=== PATIENT | male | born 2005 | race Two or more races ===

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

== ENCOUNTER 2025-06-15 15:02 | Inpatient (IN) | payer MEDICAID ==
[~2025-06-15] VITALS: Ht 162.6 cm; Wt 59.0 kg
[2025-06-15] MEDS: IV NS 0.9% 1,000 ML BAG IV ONE (15:54)
[2025-06-15 15:55] LABS: PLATELET COUNT (AUTO) 351 K/uL (150-450); RED BLOOD CELL COUNT(AUTO) 3.43 MIL/uL (4.5-6.0); RED CELL DISTRIBUTION WIDTH 16.5 % (11.5-15.0); WHITE BLOOD COUNT (AUTO) 28.8 K/uL (4.3-11.0)
[2025-06-15 16:05] LABS: CALCIUM, SERUM 8.2 mg/dL (8.5-10.1); CREATININE 3.0 mg/dL (0.6-1.3); SERUM AMMONIA 28.0 umol/L (11-32); SODIUM SERUM 140.0 mmol/L (136-145); UREA NITROGEN, BLOOD 21.0 mg/dL (7-18)
[2025-06-15 16:07] LABS: INR 4.31 (0.91-1.10)
[2025-06-15 16:18] LABS: ASPARTATE AMINOTRANSFERASE 104.0 U/L (15-37); NT-PRO BNP 976.0 pg/mL (0-125); TOTAL PROTEIN, SERUM 7.1 g/dL (6.4-8.2)
[2025-06-15] MEDS ORDERED: PIPERACI/TAZO 3.375GM/D5W 50ML PB IV ONE (16:46)
[2025-06-15] MEDS: PIPERACILLIN /TAZOBACTAM 4.5 G in IV D5W 100 ML IV SCH (17:00)
[2025-06-15] MEDS ORDERED: PHYTONADIONE INJ 10 MG/1 ML AMPUL ONE (17:22)
[2025-06-15] MEDS ORDERED: MAGNESIUM HYDROXIDE 30 ML UDC PO PRN (17:30)
[2025-06-15] MEDS ORDERED: ONDANSETRON HCL/PF 4 MG/2 ML VIAL IVP PRN (17:30)
[2025-06-15] MEDS ORDERED: DOSING PER PHARMACY-ZOSYN IV 1 EA EA XX PRN (17:30)
[2025-06-15] MEDS: PANTOPRAZOLE 40 MG VIAL IV SCH (17:30)
[2025-06-15] MEDS ORDERED: Z GUARD REMEDY 4 OZ OINT TP PRN (17:30)
[2025-06-15] MEDS: PHYTONADIONE IV ONE (17:40)
[2025-06-15] MEDS: NS 0.9% IV ONE (17:40)
[2025-06-15] MEDS: PHYTONADIONE 10 MG in IV D5W 50 ML IV ONE (17:55)
[2025-06-15 18:20] LABS: APPEARANCE,URINE SLIGHTLY CLOUDY (CLEAR); BLOOD, URINE NEGATIVE Ery/uL (NEGATIVE); LEUKOCYTE ESTERASE ,URINE NEGATIVE (NEGATIVE); NITRITE, URINE NEGATIVE (NEGATIVE); UGLUCOSE NEGATIVE (NEGATIVE)
[2025-06-15 18:47] LABS: ADD URINE CULTURE NO
[2025-06-15] MEDS: Thiamine 100 MG in IV D5W 50 ML IV SCH (18:57)
[2025-06-15 20:00] VITALS: BP 94/63; TEMP 97.9; O2SAT 95
[2025-06-15] MEDS: IV D5/ 0.9% NACL 1,000 ML IV PRN (21:25)
[2025-06-15] MEDS: ZOSYN IVPB 2.25 G in IV D5W 50ml IV SCH (23:21)
[2025-06-16] VITALS: BP 110/71; TEMP 98.1; O2SAT 95
[2025-06-16] MEDS: LORAZEPAM INJ 2 MG/ML VIAL IV PRN (01:16)
[2025-06-16 04:00] VITALS: BP 95/63; TEMP 98; O2SAT 95
[2025-06-16 06:34] LABS: PLATELET COUNT (AUTO) 298 K/uL (150-450); RED BLOOD CELL COUNT(AUTO) 3.08 MIL/uL (4.5-6.0); RED CELL DISTRIBUTION WIDTH 15.8 % (11.5-15.0); WHITE BLOOD COUNT (AUTO) 26.7 K/uL (4.3-11.0)
[2025-06-16 07:06] LABS: ASPARTATE AMINOTRANSFERASE 87.0 U/L (15-37); CALCIUM, SERUM 7.7 mg/dL (8.5-10.1); CREATININE 2.4 mg/dL (0.6-1.3); PHOSPHORUS 3.4 mg/dL (2.5-4.9); SODIUM SERUM 139.0 mmol/L (136-145); TOTAL PROTEIN, SERUM 5.9 g/dL (6.4-8.2); UREA NITROGEN, BLOOD 20.0 mg/dL (7-18)
[2025-06-16 08:00] VITALS: BP 94/54; TEMP 98.6; O2SAT 96
[2025-06-16] MEDS: POTASSIUM CHLORIDE 20 MEQ TAB.PRT.SR PO ONE (10:04)
[2025-06-16 12:00] VITALS: BP 96/64; TEMP 98.8; O2SAT 96
[2025-06-16] MEDS: PIPERACILLIN /TAZOBACTAM 3.375 G in IV D5W 100 ML IV SCH (12:04)
[2025-06-16] MEDS: MORPHINE SULFATE INJ 2 MG/ML DISP.SYRIN IV PRN (12:07)
[2025-06-16 16:00] VITALS: BP 96/61; TEMP 98.5; O2SAT 96
[2025-06-16 20:00] VITALS: BP 97/72; TEMP 97.9; O2SAT 94
[2025-06-17] VITALS: BP 125/88; TEMP 97.9; O2SAT 94
[2025-06-17 03:13] LABS: HBSAG SCREEN Negative (Negative); HEPATITIS A AB, IgM Negative (Negative); HEPATITIS B CORE AB, IgM Negative (Negative)
[2025-06-17 04:00] VITALS: BP 107/85; TEMP 98.1; O2SAT 94
[2025-06-17 07:12] LABS: HEPATITIS A AB, IgM Negative (Negative); HEPATITIS A AB, TOTAL Positive (Negative); HEPATITIS B CORE AB, TOTAL Negative (Negative)
[2025-06-17 08:00] VITALS: BP 100/63; TEMP 98.2; O2SAT 94
[2025-06-17 08:04] LABS: CREATINE KINASE, TOTAL 23.0 U/L (39-308)
[2025-06-17 08:06] LABS: PLATELET COUNT (AUTO) 281 K/uL (150-450); RED BLOOD CELL COUNT(AUTO) 3.20 MIL/uL (4.5-6.0); RED CELL DISTRIBUTION WIDTH 16.0 % (11.5-15.0)
[2025-06-17 08:11] LABS: ASPARTATE AMINOTRANSFERASE 92.0 U/L (15-37); CALCIUM, SERUM 7.9 mg/dL (8.5-10.1); CREATININE 2.3 mg/dL (0.6-1.3); PHOSPHORUS 3.7 mg/dL (2.5-4.9); SODIUM SERUM 140.0 mmol/L (136-145); TOTAL PROTEIN, SERUM 6.3 g/dL (6.4-8.2); UREA NITROGEN, BLOOD 21.0 mg/dL (7-18)
[2025-06-17 08:21] LABS: WHITE BLOOD COUNT (AUTO) 39.4 K/uL (4.3-11.0)
[2025-06-17] MEDS: Magnesium 1GM/D5W 100ML PREMIX 100 ML IV SCH (09:31)
[2025-06-17 10:47] LABS: EOSINOPHILS % (MANUAL) 4 % (0-4); LYMPHOCYTES % (MANUAL) 3 % (16-48); MONOCYTES % (MANUAL) 6 % (0-11.0); NEUTROPHILS % (MANUAL) 87 (42-76); PLATELET ESTIMATE ADEQUATE
[2025-06-17 12:00] VITALS: BP 98/65; TEMP 97.9; O2SAT 94
[2025-06-17 16:00] VITALS: BP 104/67; TEMP 98.7; O2SAT 92
[2025-06-17 20:00] VITALS: BP 109/65; TEMP 98.1; O2SAT 91
[2025-06-17 20:00] LABS: CREATININE, URINE 151.7 MG/DL (30.0-125.0); URINE SODIUM, RANDOM 70.0 mmol/l (40-220); URINE TOTAL PROTEIN 106.2 mg/dL (0-11.9)
[2025-06-18] VITALS: BP 107/65; TEMP 97.5; O2SAT 93
[2025-06-18 04:00] VITALS: BP 106/70; TEMP 97.9; O2SAT 91
[2025-06-18 08:00] VITALS: BP 109/75; TEMP 98.2; O2SAT 94
[2025-06-18 08:00] LABS: ASPARTATE AMINOTRANSFERASE 73.0 U/L (15-37); CALCIUM, SERUM 8.1 mg/dL (8.5-10.1); CREATININE 2.0 mg/dL (0.6-1.3); PHOSPHORUS 4.2 mg/dL (2.5-4.9); SODIUM SERUM 139.0 mmol/L (136-145); TOTAL PROTEIN, SERUM 6.1 g/dL (6.4-8.2); UREA NITROGEN, BLOOD 20.0 mg/dL (7-18)
[2025-06-18 08:04] LABS: PLATELET COUNT (AUTO) 254 K/uL (150-450); RED BLOOD CELL COUNT(AUTO) 3.24 MIL/uL (4.5-6.0); RED CELL DISTRIBUTION WIDTH 16.0 % (11.5-15.0)
[2025-06-18 08:05] LABS: WHITE BLOOD COUNT (AUTO) 43.6 K/uL (4.3-11.0)
[2025-06-18 08:10] LABS: PTH, INTACT 8 pg/mL (15-65)
[2025-06-18] MEDS: ALBUMIN 25% 25 GM in PREMIX 1 EA IV ONE (08:54)
[2025-06-18] MEDS ORDERED: GUAIFENESIN 300 MG/15 ML UDC PO PRN (10:00)
[2025-06-18] MEDS: POTASSIUM CL. PREMIX PERIPHER. 50 ML IV SCH (10:55)
[2025-06-18 11:41] LABS: LYMPHOCYTES % (MANUAL) 5 % (16-48); MONOCYTES % (MANUAL) 7 % (0-11.0); NEUTROPHILS % (MANUAL) 88 (42-76); PLATELET ESTIMATE ADEQUATE
[2025-06-18 12:00] VITALS: BP 102/60; TEMP 97.9; O2SAT 93
[2025-06-18] MEDS ORDERED: KETOROLAC TROMETHAMINE 15 MG/ML VIAL IV ONE (14:30)
[2025-06-18] MEDS: KETOROLAC TROMETHAMINE INJ 30 MG/ML VIAL IV ONE (14:38)
[2025-06-18 16:00] VITALS: BP 112/77; TEMP 98.1; O2SAT 92
[2025-06-18] MEDS: LORAZEPAM 0.5 MG TABLET PO ONE (16:38)
[2025-06-18] MEDS: THIAMINE HCL 100 MG TABLET PO SCH (18:57)
[2025-06-18 20:00] VITALS: BP 103/50; TEMP 97.2; O2SAT 92
[2025-06-18] MEDS: TRAZODONE 50 MG TABLET PO PRN (22:18)
[2025-06-18] MEDS: MAG HYDROX/AL HYDROX/SIMETH 30 ML UDC PO PRN (22:59)
[2025-06-19] VITALS (10 sets, daily range): BP systolic 92–109; BP diastolic 51–70; TEMP 97.2–97.5; O2SAT 91–100
[2025-06-19 07:14] LABS: PLATELET COUNT (AUTO) 215 K/uL (150-450); RED BLOOD CELL COUNT(AUTO) 3.12 MIL/uL (4.5-6.0); RED CELL DISTRIBUTION WIDTH 15.9 % (11.5-15.0)
[2025-06-19 07:35] LABS: WHITE BLOOD COUNT (AUTO) 38.1 K/uL (4.3-11.0)
[2025-06-19 08:03] LABS: ASPARTATE AMINOTRANSFERASE 66.0 U/L (15-37); CALCIUM, SERUM 7.9 mg/dL (8.5-10.1); CREATININE 2.0 mg/dL (0.6-1.3); PHOSPHORUS 3.8 mg/dL (2.5-4.9); SODIUM SERUM 138.0 mmol/L (136-145); TOTAL PROTEIN, SERUM 6.1 g/dL (6.4-8.2); UREA NITROGEN, BLOOD 21.0 mg/dL (7-18)
[2025-06-19] MEDS: PANTOPRAZOLE 40 MG TABLET.DR PO SCH (08:20)
[2025-06-19] MEDS: LORAZEPAM 0.5 MG TABLET PO PRN (09:36)
[2025-06-19] MEDS: POTASSIUM CHLORIDE 20 MEQ TAB.PRT.SR PO SCH (10:04)
[2025-06-19] MEDS ORDERED: TRAZ-252 PO (10:47)
[2025-06-19] MEDS ORDERED: MAGN400O6 PO (10:47)
[2025-06-19] MEDS ORDERED: ONDA4VIA23 IVP (10:47)
[2025-06-19] MEDS ORDERED: Thiamine HCL PO (10:47)
[2025-06-19] MEDS ORDERED: PANT40TA49 PO (10:47)
[2025-06-19] MEDS ORDERED: MAG30ORA PO (10:47)
[2025-06-19] MEDS ORDERED: PIPE3.379 IV (10:47)
[2025-06-19] MEDS ORDERED: GUAI100S11 PO (10:47)
[2025-06-19] MEDS ORDERED: Lorazepam PO (10:47)
[2025-06-19 11:31] LABS: LYMPHOCYTES % (MANUAL) 5 % (16-48); MONOCYTES % (MANUAL) 6 % (0-11.0); NEUTROPHILS % (MANUAL) 89 (42-76); PLATELET ESTIMATE ADEQUATE
[2025-06-19] MEDS ORDERED: KETOROLAC TROMETHAMINE 15 MG/ML VIAL IV PRN (12:00)
[2025-06-19] MEDS: KETOROLAC TROMETHAMINE INJ 30 MG/ML VIAL IV PRN (12:13)
[2025-06-19] MEDS ORDERED: HYDROCODONE/APAP 5/325MG TABLET PO PRN (16:00)
== END 2025-06-19 18:30 | disposition short-term general hospital (02) | DRG 720 ==
LOC: ER 15:02 → TELE-TD 18:03 → TELE1 06-16 09:36
PROVIDERS: ADMIT Nurse Practitioner Acute Care; ATTEND Nurse Practitioner Family
DX: A41.9 Sepsis, unspecified organism (principal); K76.7 Hepatorenal syndrome; N17.0 Acute kidney failure with tubular necrosis; K70.40 Alcoholic hepatic failure without coma; J96.01 Acute respiratory failure with hypoxia; K85.90 Acute pancreatitis without necrosis or infection, unspecified; J90 Pleural effusion, not elsewhere classified; K70.30 Alcoholic cirrhosis of liver without ascites; K70.10 Alcoholic hepatitis without ascites; E86.0 Dehydration; F10.20 Alcohol dependence, uncomplicated; Y90.9 Presence of alcohol in blood, level not specified; D53.9 Nutritional anemia, unspecified; F12.90 Cannabis use, unspecified, uncomplicated; E80.6 Other disorders of bilirubin metabolism; F19.10 Other psychoactive substance abuse, uncomplicated; E87.6 Hypokalemia; K82.8 Other specified diseases of gallbladder; M89.8X9 Other specified disorders of bone, unspecified site; Z83.3 Family history of diabetes mellitus; Z82.49 Family history of ischemic heart disease and other diseases of the circulatory system; D68.4 Acquired coagulation factor deficiency; K80.00 Calculus of gallbladder with acute cholecystitis without obstruction
CPT/HCPCS: 36415; 71045-TC; 71250-TC; 74181-TC; 76705-TC; 76770-TC; 80048-TC; 80053-TC; 80076-TC; 81001; 82140-TC; 82150-TC; 82247-TC; 82248-TC; 82550-TC; 82570-TC; 83690-TC; 83735-TC; 83880; 83970; 84100-TC; 84155; 84165; 84300-TC; 85025-TC; 85027-TC; 85610-TC; 86704; 86709; 86709-TC; 86803; 87040-TC; 87086-TC; A4216; A4223; G0378; J1885; J2060; J2270; J2470; J2543; J3411; J3430; J3475; J3480; J3490; J7030; J7042; J7050; J7060; P9047

== ENCOUNTER 2025-06-25 13:47 | Inpatient (IN) | payer MEDICAID ==
[~2025-06-25] VITALS: Ht 167.6 cm; Wt 70.8 kg
[~2025-06-25 13:47] MED LIST: GUAI100S11 PO; Lorazepam PO; MAG30ORA PO; MAGN400O6 PO; ONDA4VIA23 IVP; PANT40TA49 PO; PIPE3.379 IV; TRAZ-252 PO; Thiamine HCL PO
[2025-06-25] MEDS ORDERED: MAG HYDROX/AL HYDROX/SIMETH 30 ML UDC PO PRN (14:30)
[2025-06-25] MEDS ORDERED: ONDANSETRON HCL/PF 4 MG/2 ML VIAL IVP PRN (14:30)
[2025-06-25] MEDS ORDERED: GUAIFENESIN 300 MG/15 ML UDC PO PRN (14:30)
[2025-06-25] MEDS ORDERED: MAGNESIUM HYDROXIDE 30 ML UDC PO PRN (14:30)
[2025-06-25] MEDS: THIAMINE HCL 100 MG TABLET PO SCH (15:51)
[2025-06-25] MEDS: ZOSYN IVPB 3.375 G in IV D5W 50ml IV SCH (15:56)
[2025-06-25 16:09] VITALS: BP 109/69; TEMP 98.4; O2SAT 91
[2025-06-25 20:00] VITALS: BP 114/62; TEMP 98.2; O2SAT 97
[2025-06-25] MEDS ORDERED: DEX IS IV SCH (21:00)
[2025-06-25] MEDS ORDERED: PIPERACILLIN IV SCH (21:00)
[2025-06-25] MEDS ORDERED: [UNRECOGNIZED DRUG - OTHER] IV SCH (21:00)
[2025-06-25] MEDS ORDERED: TAZOBACTAM IV SCH (21:00)
[2025-06-26 05:55] LABS: PLATELET COUNT (AUTO) 110 K/uL (150-450); RED BLOOD CELL COUNT(AUTO) 2.54 MIL/uL (4.5-6.0); RED CELL DISTRIBUTION WIDTH 15.5 % (11.5-15.0)
[2025-06-26 06:03] LABS: CALCIUM, SERUM 8.8 mg/dL (8.5-10.1); CREATININE 1.3 mg/dL (0.6-1.3); PHOSPHORUS 3.5 mg/dL (2.5-4.9); SODIUM SERUM 139.0 mmol/L (136-145); UREA NITROGEN, BLOOD 17.0 mg/dL (7-18)
[2025-06-26 06:15] LABS: WHITE BLOOD COUNT (AUTO) 43.8 K/uL (4.3-11.0)
[2025-06-26 07:30] VITALS: BP 102/58; TEMP 98.6; O2SAT 92
[2025-06-26] MEDS: POTASSIUM CHLORIDE 20 MEQ POWDER PACKET PO ONE (07:54)
[2025-06-26] MEDS: PANTOPRAZOLE 40 MG TABLET.DR PO SCH (07:54)
[2025-06-26 07:56] LABS: LYMPHOCYTES % (MANUAL) 4 % (16-48); MONOCYTES % (MANUAL) 5 % (0-11.0); NEUTROPHILS % (MANUAL) 91 (42-76); PLATELET ESTIMATE DECREASED
[2025-06-26] MEDS: LACTULOSE 10 G/15 ML UDC (PYXIS) PO SCH (08:15)
[2025-06-26] MEDS: SPIRONOLACTONE 25 MG TABLET PO SCH (08:15)
[2025-06-26] MEDS: POTASSIUM CHLORIDE 20 MEQ TAB.PRT.SR PO SCH (09:25)
[2025-06-26 16:00] VITALS: BP 121/70; TEMP 98.2; O2SAT 96
[2025-06-27 06:15] LABS: PLATELET COUNT (AUTO) 126 K/uL (150-450); RED BLOOD CELL COUNT(AUTO) 2.53 MIL/uL (4.5-6.0); RED CELL DISTRIBUTION WIDTH 15.4 % (11.5-15.0)
[2025-06-27 06:15] LABS: ASPARTATE AMINOTRANSFERASE 78.0 U/L (15-37); CALCIUM, SERUM 8.8 mg/dL (8.5-10.1); CREATININE 1.1 mg/dL (0.6-1.3); SODIUM SERUM 141.0 mmol/L (136-145); UREA NITROGEN, BLOOD 13.0 mg/dL (7-18)
[2025-06-27 06:26] LABS: WHITE BLOOD COUNT (AUTO) 49.7 K/uL (4.3-11.0)
[2025-06-27 08:13] VITALS: BP 122/75; TEMP 98.1; O2SAT 92
[2025-06-27 12:52] LABS: LYMPHOCYTES % (MANUAL) 3 % (16-48); MONOCYTES % (MANUAL) 3 % (0-11.0); NEUTROPHILS % (MANUAL) 94 (42-76); PLATELET ESTIMATE DECREASED
[2025-06-27 16:23] VITALS: BP 120/84; TEMP 98.6; O2SAT 92
[2025-06-27] MEDS ORDERED: CEFEPIME 1 GM in IV D5W 50 ML IV SCH (18:30)
[2025-06-27] MEDS ORDERED: DOSING PER PHARMACY-VANCOMYCIN IV XX PRN (18:30)
[2025-06-27] MEDS: LORAZEPAM 0.5 MG TABLET PO PRN (18:34)
[2025-06-27 20:00] VITALS: BP 111/67; TEMP 97.9; O2SAT 95
[2025-06-27] MEDS: CEFEPIME 2 GM in IV D5W 100 ML IV SCH (20:33)
[2025-06-27] MEDS: VANCOMYCIN 1 GM in IV D5W 250ml IV ONE (21:11)
[2025-06-28 07:15] LABS: ASPARTATE AMINOTRANSFERASE 57.0 U/L (15-37); CALCIUM, SERUM 8.5 mg/dL (8.5-10.1); CREATININE 0.9 mg/dL (0.6-1.3); SODIUM SERUM 137.0 mmol/L (136-145); TOTAL PROTEIN, SERUM 6.0 g/dL (6.4-8.2); UREA NITROGEN, BLOOD 16.0 mg/dL (7-18)
[2025-06-28 07:18] LABS: PLATELET COUNT (AUTO) 141 K/uL (150-450); RED BLOOD CELL COUNT(AUTO) 2.50 MIL/uL (4.5-6.0); RED CELL DISTRIBUTION WIDTH 15.6 % (11.5-15.0)
[2025-06-28 07:53] LABS: WHITE BLOOD COUNT (AUTO) 59.9 K/uL (4.3-11.0)
[2025-06-28 08:00] VITALS: BP 110/71; TEMP 98.2; O2SAT 95
[2025-06-28] MEDS: VANCOMYCIN HCL 1.25 GM in IV D5W 250 ML IV SCH (08:34)
[2025-06-28] MEDS: ACETAMINOPHEN 325 MG TABLET PO PRN (11:38)
[2025-06-28] MEDS: ALBUMIN 25% 12.5 GM/50 ML BOTTLE IV ONE (12:03)
[2025-06-28 12:23] LABS: LYMPHOCYTES % (MANUAL) 1 % (16-48); MONOCYTES % (MANUAL) 5 % (0-11.0); NEUTROPHILS % (MANUAL) 94 (42-76); PLATELET ESTIMATE DECREASED
[2025-06-28 16:00] VITALS: BP 117/69; TEMP 97.9; O2SAT 99
[2025-06-28] MEDS: SPIRONOLACTONE 25 MG TABLET PO SCH (16:26)
[2025-06-28] MEDS: VANCOMYCIN 1 GM in IV D5W 250 ML IV SCH (16:27)
[2025-06-28 20:00] VITALS: BP 116/73; TEMP 98.4; O2SAT 93
[2025-06-28 22:52] VITALS: BP 116/73; TEMP 98.4; O2SAT 93
[2025-06-29 06:06] LABS: PLATELET COUNT (AUTO) 162 K/uL (150-450); RED BLOOD CELL COUNT(AUTO) 2.37 MIL/uL (4.5-6.0); RED CELL DISTRIBUTION WIDTH 15.4 % (11.5-15.0)
[2025-06-29 06:17] LABS: SERUM AMMONIA 16.0 umol/L (11-32)
[2025-06-29 06:18] LABS: WHITE BLOOD COUNT (AUTO) 61.9 K/uL (4.3-11.0)
[2025-06-29 06:24] LABS: ASPARTATE AMINOTRANSFERASE 42.0 U/L (15-37); CALCIUM, SERUM 8.7 mg/dL (8.5-10.1); CREATININE 0.9 mg/dL (0.6-1.3); SODIUM SERUM 142.0 mmol/L (136-145); TOTAL PROTEIN, SERUM 6.3 g/dL (6.4-8.2); UREA NITROGEN, BLOOD 19.0 mg/dL (7-18)
[2025-06-29 07:10] LABS: BAND % (MANUAL) 3 % (0.0-5.0); BASOPHILS % (MANUAL) 0 % (0.0-2.0); EOSINOPHILS % (MANUAL) 0 % (0-4); LYMPHOCYTES % (MANUAL) 5 % (16-48); MONOCYTES % (MANUAL) 7 % (0-11.0); NEUTROPHILS % (MANUAL) 85 (42-76); PLATELET ESTIMATE ADEQUATE
[2025-06-29 20:00] VITALS: BP 111/74; TEMP 98.6; O2SAT 93
[2025-06-29] MEDS: VANCOMYCIN 750 MG in IV D5W 250 ML IV SCH (22:00)
[2025-06-30 08:00] VITALS: BP 109/71; TEMP 98.1; O2SAT 94
[2025-06-30 16:00] VITALS: BP 120/80; TEMP 97.9; O2SAT 94
[2025-06-30 20:00] VITALS: BP 123/79; TEMP 98.1; O2SAT 93
[2025-07-01] MEDS: TRAZODONE 50 MG TABLET PO PRN (00:23)
[2025-07-01 07:30] VITALS: BP 110/69; TEMP 98.1; O2SAT 92
[2025-07-01] MEDS ORDERED: PRED20TA PO (11:08)
== END 2025-07-01 12:05 | disposition home or self-care (01) | DRG 720 ==
LOC: MED 13:47
PROVIDERS: ADMIT Nurse Practitioner Acute Care; ATTEND Nurse Practitioner Acute Care
DX: A41.9 Sepsis, unspecified organism (principal); N17.0 Acute kidney failure with tubular necrosis; K65.2 Spontaneous bacterial peritonitis; G92.8 Other toxic encephalopathy; J96.01 Acute respiratory failure with hypoxia; E43 Unspecified severe protein-calorie malnutrition; K70.40 Alcoholic hepatic failure without coma; J90 Pleural effusion, not elsewhere classified; K70.11 Alcoholic hepatitis with ascites; D53.9 Nutritional anemia, unspecified; K76.6 Portal hypertension; K70.31 Alcoholic cirrhosis of liver with ascites; E88.09 Other disorders of plasma-protein metabolism, not elsewhere classified; E80.6 Other disorders of bilirubin metabolism; Y90.9 Presence of alcohol in blood, level not specified; F10.10 Alcohol abuse, uncomplicated; Y95 Nosocomial condition; D68.9 Coagulation defect, unspecified; Z79.899 Other long term (current) drug therapy; J15.9 Unspecified bacterial pneumonia; J98.11 Atelectasis
CPT/HCPCS: 36415; 71045-TC; 71250-TC; 76705-TC; 80048-TC; 80053-TC; 80076-TC; 80202-TC; 82140-TC; 83735-TC; 84100-TC; 85027-TC; 87040-TC; 87081-TC; 97110-TC; 97116-TC; 97530-TC; A4223; G0378; J0692; J2543; J3373; J3374; J7050; J7060; P9047